=== PATIENT | female | born 1950 | race Caucasian/White ===

== ENCOUNTER 2017-01-22 07:11 | Day surgery (SDC) | payer OTHER ==
[~2017-01-22] VITALS: Ht 162.6 cm; Wt 74.9 kg
[2017-01-22 07:26] VITALS: Ht 162.6 cm; Wt 74.9 kg
[2017-01-22] MEDS ORDERED: LOSA1TAB21 PO (07:39)
[2017-01-22] MEDS ORDERED: ATOR40TA68 PO (07:40)
[2017-01-22] MEDS ORDERED: AMLO2.5T2 PO (07:40)
[2017-01-22] MEDS ORDERED: AMLO2.5T78 PO (07:40)
[2017-01-22] MEDS ORDERED: METO-335 PO (07:40)
[2017-01-22 07:55] VITALS: BP 141/92; PULSE 67; RESP 18
[2017-01-22] MEDS ORDERED: LIDOCAINE 2% (SDV) 5 ML INJ ONE (08:13)
[2017-01-22] MEDS ORDERED: PROPOFOL 60 ML ONE (08:13)
--- NOTE | 2017-01-22 08:45 | OPPN ---
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
[2017-01-22 09:10] VITALS: BP 135/85; RESP 14
--- NOTE | 2017-01-22 10:31 | GILP ---
DATE OF PROCEDURE: 01/22/2017 SURGEON: Caity Kim MD. PROCEDURE PERFORMED: 1. Esophagogastroduodenoscopy and biopsy. 2. Colonoscopy and biopsy. PREOPERATIVE DIAGNOSES: 1. Abdominal pain. 2. Screening. POSTOPERATIVE DIAGNOSES: 1. Hiatal hernia. 2. Gastroesophageal reflux disease. 3. Gastritis with erosions. 4. Gastric mucosal biopsies were taken for Helicobacter pylori test. 5. Colonoscopy all the way to the cecum. 6. Small transverse colon polyp was removed using biopsy forceps. 7. Random biopsies were taken to rule out microscopic colitis. 8. Internal hemorrhoids. INDICATION: Mr. Carmelina Martini is a 66-year-old female patient who had upper abdominal pain, not responding to therapy. She also needed a screening colonoscopy. She also had a history of diarrhea. The procedures and possible complications were well- explained to the patient. She understood and consented to the procedure. DESCRIPTION OF PROCEDURE: Under influence of anesthesia, the gastroscope was carefully introduced into the esophagus. Under direct vision, it was advanced to the stomach, into the pylorus, into the duodenal bulb, and descending duodenum. FINDINGS: ESOPHAGUS: The patient had hiatal hernia and gastroesophageal reflux disease. STOMACH: The patient had gastritis and gastric mucosal biopsies were taken for Helicobacter pylori test. Duodenum was normal. COLONOSCOPY: The colonoscope was carefully introduced the rectum, and under direct vision it was advanced all the way to the cecum. FINDINGS: The patient had a small transverse colon polyp and it was removed using biopsy forceps. Random biopsies were taken to rule out microscopic colitis. She was noted to have internal hemorrhoids. She tolerated the procedure very well. There was no complication from the procedure. At the end of procedure, she was awake with stable vital signs, and she was discharged home in the care of her family. IMPRESSION: Please see postop diagnoses. PLAN: 1. Omeprazole 40 mg orally every morning. 2. Await histopathology reports. 3. Next screening colonoscopy in 10 years. Dictated By: MD CYNTHIA Weeks/tova/selina /Document#: [id number]
== END 2017-01-22 11:24 | disposition home or self-care (01) ==
LOC: GIL 07:11
PROVIDERS: ATTEND Internal Medicine Gastroenterology
DX: Z12.11 Encounter for screening for malignant neoplasm of colon (principal); D12.3 Benign neoplasm of transverse colon; K64.8 Other hemorrhoids; K29.70 Gastritis, unspecified, without bleeding; K21.9 Gastro-esophageal reflux disease without esophagitis; K44.9 Diaphragmatic hernia without obstruction or gangrene; E78.5 Hyperlipidemia, unspecified; I10 Essential (primary) hypertension; E66.01 Morbid (severe) obesity due to excess calories; Z68.28 Body mass index [BMI] 28.0-28.9, adult; Z88.0 Allergy status to penicillin
CPT/HCPCS: 43239; 45380; 87081; 88305; Z7610